=== PATIENT | male | born 1975 | race Caucasian/White ===

== ENCOUNTER 2020-07-04 09:46 | Emergency (ER) | payer SELFPAY ==
[~2020-07-04] VITALS: Ht 177.8 cm; Wt 88.2 kg
[2020-07-04 09:52] VITALS: BP 146/93
[2020-07-04] MEDS ORDERED: KETOROLAC 30 MG/1 ML ONE (10:19)
[2020-07-04] MEDS ORDERED: KETOROLAC 30 MG/1 ML IM ONE (10:30)
--- NOTE | 2020-07-04 12:02 | NUR ---
PT REPORTS PAIN IS BETTER AFTER TORADOL. CHART UP FOR MD RECHECK.
== END 2020-07-04 12:21 | disposition home or self-care (01) ==
LOC: ED 11:06
DX: M16.12 Unilateral primary osteoarthritis, left hip (principal); F17.210 Nicotine dependence, cigarettes, uncomplicated
CPT/HCPCS: 73502; 96372; 99283; J1885

== ENCOUNTER 2020-08-14 18:54 | Inpatient (IN) | payer OTHER ==
[~2020-08-14] VITALS: Ht 172.7 cm; Wt 87.3 kg
[2020-08-14] MEDS ORDERED: ALBUTEROL/IPRATROPIUM 2.5MG/0.5MG, 3 ML NPPB ONE (19:30)
[2020-08-14] MEDS ORDERED: methylPREDNISolone SOD SUCC 125 MG/2 ML IVPush ONE (19:30)
[2020-08-14] MEDS ORDERED: ALBUTEROL/IPRATROPIUM 2.5MG/0.5MG, 3 ML ONE (19:30)
[2020-08-14 20:03] LABS: ALANINE AMINOTRANSFERASE 271 U/L (12-78); ALBUMIN 3.6 g/dL (3.4-5.0); ANION GAP 10 mmol/L (5-15); CALCIUM 8.5 mg/dL (8.5-10.1); CHLORIDE 105 mmol/L (98-107); CREATININE 1.03 mg/dL (0.7-1.3)
[2020-08-14 20:07] LABS: ALKALINE PHOSPHATASE 118 U/L (45-117); BILIRUBIN,TOTAL 0.7 mg/dL (0.2-1.0); TOTAL PROTEIN 8.1 g/dL (6.4-8.2); TROPONIN I 0.045 ng/mL (0.000-0.045)
[2020-08-14 20:19] LABS: BASOPHILS % (AUTO) 1 % (0-1); EOSINOPHILS % (AUTO) 1 % (1-7); LYMPHOCYTES % (AUTO) 37 % (22-44); MEAN CORPUSCULAR HEMOGLOBIN 33.2 pg (27.5-34.5); MEAN CORPUSCULAR HGB CONC 34.7 g/dL (33.2-36.2); MEAN PLATELET VOLUME 7.8 fL (7.4-10.4); MONOCYTES % (AUTO) 4 % (2-9); NEUTROPHILS % (AUTO) 57 % (42-75); PLATELET COUNT 287 x10^3/uL (130-400); RED BLOOD COUNT 5.57 x10^6/uL (4.38-5.82)
[2020-08-14 20:25] LABS: MD NO
[2020-08-14 22:22] LABS: TROPONIN I 0.047 ng/mL (0.000-0.045)
[2020-08-14] MEDS ORDERED: SODIUM CHLORIDE 0.9% 1,000ML IVBOLUS ONE (23:00)
[2020-08-15 01:32] LABS: TROPONIN I 0.052 ng/mL (0.000-0.045)
[2020-08-15] MEDS ORDERED: ASPIRIN 325 MG TABLET ONE (01:51)
[2020-08-15] MEDS ORDERED: ASPIRIN 325 MG TABLET PO ONE (02:00)
--- NOTE | 2020-08-15 02:00 | NUR ---
REPORT GIVEN TO IVETH WHATLEY TO ASSUME CARE UPON TRANSFER TO [facility]
[2020-08-15 02:42] VITALS: BP 179/117
[2020-08-15] MEDS ORDERED: LABETALOL 5MG/ML, 20ML IVPush ONE (03:15)
[2020-08-15] MEDS ORDERED: PROMETHAZINE 25 MG/ML, 1ML IM PRN (06:00)
[2020-08-15] MEDS ORDERED: THIAMINE 200 MG in SODIUM CHLORIDE 0.9% 50 ML IV ONE (06:00)
[2020-08-15] MEDS ORDERED: morphine SULFATE 10 MG/ML, 1ML IVPush PRN (06:00)
[2020-08-15 07:01] LABS: CHOLESTEROL, TOTAL 172 mg/dL (140-239); TRIGLYCERIDES 644 mg/dL (50-200)
[2020-08-15 07:04] LABS: CHOL/HDL RATIO 4.6; HDL CHOL % 22 % (26-37); HDL CHOLESTEROL (DIRECT) 37 mg/dL (40-60); TROPONIN I 0.043 ng/mL (0.000-0.045)
[2020-08-15 07:10] VITALS: BP 154/110
[2020-08-15] MEDS: PANTOPRAZOLE 40 MG IV IVPush SCH (08:20)
[2020-08-15] MEDS ORDERED: REGADENOSON 0.4 MG/5 ML SYRINGE ONE (08:46)
[2020-08-15] MEDS ORDERED: LORazepam 0.5MG TABLET PO PRN (09:00)
[2020-08-15] MEDS ORDERED: LORazepam 1MG TABLET PO PRN ×4 (09:00)
[2020-08-15] MEDS ORDERED: LORazepam 2 MG/ML, 1ML IV PRN ×5 (09:00)
[2020-08-15] MEDS: FOLIC ACID 1 MG TABLET PO SCH (10:59)
[2020-08-15] MEDS: EZETIMIBE 10 MG TABLET PO SCH (10:59)
[2020-08-15] MEDS: THIAMINE 100MG TABLET PO SCH (10:59)
[2020-08-15] MEDS: MULTIVITAMIN 1 TABLET PO SCH (10:59)
[2020-08-15] MEDS ORDERED: ONDANSETRON 2MG/ML, 2ML IVPush PRN (12:30)
[2020-08-15] MEDS ORDERED: ONDANSETRON 4 MG TABLET PO PRN (12:30)
[2020-08-15 15:30] VITALS: BP 160/97
[2020-08-15] MEDS ORDERED: ALBUTEROL HFA 90 MCG/SPRAY INH PRN (15:30)
[2020-08-15] MEDS ORDERED: AMLODIPINE 5 MG TABLET ONE (15:57)
[2020-08-15] MEDS ORDERED: AMLODIPINE 5 MG TABLET PO SCH (16:00)
[2020-08-15 19:25] VITALS: BP 151/110
[2020-08-15 22:03] VITALS: BP 145/100
[2020-08-15 23:38] LABS: CLOSTRIDIUM DIFFICILE ANTIGEN POSITIVE; CLOSTRIDIUM DIFFICILE TOXIN NEGATIVE (Negative)
[2020-08-16] VITALS (8 sets, daily range): BP systolic 138–161; BP diastolic 94–121
[2020-08-16 04:45] LABS: BASOPHILS % (AUTO) 0 % (0-1); EOSINOPHILS % (AUTO) 0 % (1-7); LYMPHOCYTES % (AUTO) 22 % (22-44); MEAN CORPUSCULAR HEMOGLOBIN 33.5 pg (27.5-34.5); MEAN CORPUSCULAR HGB CONC 34.3 g/dL (33.2-36.2); MEAN PLATELET VOLUME 8.1 fL (7.4-10.4); MONOCYTES % (AUTO) 7 % (2-9); NEUTROPHILS % (AUTO) 71 % (42-75); PLATELET COUNT 206 x10^3/uL (130-400); RED BLOOD COUNT 5.28 x10^6/uL (4.38-5.82); RED CELL DISTRIBUTION WIDTH 13.1 % (9.4-14.8)
[2020-08-16 04:51] LABS: MD NO
[2020-08-16 04:52] LABS: ALBUMIN 3.3 g/dL (3.4-5.0); ANION GAP 8 mmol/L (5-15); CALCIUM 8.8 mg/dL (8.5-10.1); CHLORIDE 101 mmol/L (98-107)
[2020-08-16 04:56] LABS: ALANINE AMINOTRANSFERASE 189 U/L (12-78); ALKALINE PHOSPHATASE 105 U/L (45-117); BILIRUBIN,TOTAL 2.1 mg/dL (0.2-1.0); TOTAL PROTEIN 7.5 g/dL (6.4-8.2)
[2020-08-16] MEDS: PANTOPRAZOLE 40 MG IV IVPush SCH (07:55)
[2020-08-16] MEDS: FOLIC ACID 1 MG TABLET PO SCH (08:00)
[2020-08-16] MEDS: MULTIVITAMIN 1 TABLET PO SCH (08:00)
[2020-08-16] MEDS: THIAMINE 100MG TABLET PO SCH (08:00)
[2020-08-16] MEDS: EZETIMIBE 10 MG TABLET PO SCH (08:00)
[2020-08-16] MEDS ORDERED: AMLODIPINE 5 MG TABLET PO SCH ×2 (09:00)
[2020-08-16] MEDS ORDERED: EZET10TA48 PO (11:36)
[2020-08-16] MEDS ORDERED: AMLO-150 PO (11:36)
[2020-08-16] MEDS ORDERED: ALBU18HF INH (11:36)
[2020-08-16] MEDS: LABETALOL 5MG/ML, 20ML IVPush PRN ×2 (12:35→14:52)
[2020-08-16] MEDS ORDERED: VANC1VIA3 PEG (15:18)
[2020-08-16] MEDS ORDERED: VANCOMYCIN 50 MG/ML ORAL SUSP PO SCH (16:00)
== END 2020-08-16 18:04 | disposition home or self-care (01) | DRG 281 ==
LOC: ED 21:31 → EDIP 08-15 01:52 → 5SO 08-15 02:28 → 3N 08-16 05:56
PROVIDERS: ADMIT Family Medicine; ATTEND Family Medicine
DX: I21.A1 Myocardial infarction type 2 (principal); J44.1 Chronic obstructive pulmonary disease with (acute) exacerbation; K70.9 Alcoholic liver disease, unspecified; K75.9 Inflammatory liver disease, unspecified; F10.20 Alcohol dependence, uncomplicated; F17.200 Nicotine dependence, unspecified, uncomplicated; F12.10 Cannabis abuse, uncomplicated; I10 Essential (primary) hypertension; D75.1 Secondary polycythemia; K52.29 Other allergic and dietetic gastroenteritis and colitis; E78.1 Pure hyperglyceridemia; Z85.118 Personal history of other malignant neoplasm of bronchus and lung; Z90.49 Acquired absence of other specified parts of digestive tract
CPT/HCPCS: 36415; J3370; 71045; 71250; 74176; 78452; 80053; 80061; 80074; 84484; 85025; 85379; 87324; 87493; 93005; 93017; 93306; 94640; G0378; J2550; J2785; J3411; A9502; C9113; J7030; J7512

== ENCOUNTER 2021-03-03 17:47 | Inpatient (IN) | payer MEDICAID ==
[~2021-03-03] VITALS: Ht 177.8 cm; Wt 87.7 kg
[~2021-03-03 17:47] MED LIST: ALBU18HF INH; AMLO-150 PO; EZET10TA48 PO; VANC1VIA3 PEG
--- NOTE | 2021-03-03 18:13 | NUR ---
PT REPORTS HE TRIED TO COMMIT SI X4 TIMES IN THE LAST WEEK. TODAY, HE REPORTS HE TOOK 30 PILLS DOXEPIN. PT ALSO SMELLS OF ETOH. BELONGINGS PLACED AND STICKERED IN BAG. PLACED IN LOCKER. BAL 0.337 ATTACHED TO ALL MONITORS. VSS. NADN. EKG DONE. SITTER AT BEDSIDE.
[2021-03-03 18:28] LABS: BASOPHILS % (AUTO) 1 % (0-1); EOSINOPHILS % (AUTO) 5 % (1-7); LYMPHOCYTES % (AUTO) 39 % (22-44); MEAN CORPUSCULAR HEMOGLOBIN 34.9 pg (27.5-34.5); MEAN CORPUSCULAR HGB CONC 35.4 g/dL (33.2-36.2); MEAN PLATELET VOLUME 7.9 fL (7.4-10.4); MONOCYTES % (AUTO) 8 % (2-9); NEUTROPHILS % (AUTO) 48 % (42-75); PLATELET COUNT 258 x10^3/uL (130-400); RED BLOOD COUNT 5.53 x10^6/uL (4.38-5.82); RED CELL DISTRIBUTION WIDTH 13.8 % (9.4-14.8)
[2021-03-03 18:39] LABS: ALBUMIN 3.7 g/dL (3.4-5.0); ANION GAP 11 mmol/L (5-15); CALCIUM 8.4 mg/dL (8.5-10.1); CHLORIDE 108 mmol/L (98-107); CREATININE 0.89 mg/dL (0.7-1.3)
[2021-03-03 18:40] LABS: SALICYLATE LEVEL < 1.7 mg/dL (2.8-20.0)
[2021-03-03 18:42] LABS: MD NO
--- NOTE | 2021-03-03 18:50 | NUR ---
received report from CHACORTA Jerez. patient sleeping, respiration unlabored.
[2021-03-03] MEDS ORDERED: POTASSIUM CHLORIDE 20 MEQ TAB.ER.PRT PO ONE (19:00)
--- NOTE | 2021-03-03 19:33 | NUR ---
Sister: Radha Kovacs : [phone]
--- NOTE | 2021-03-03 21:57 | NUR ---
spoke to poison control, at this time supportive measures only.
--- NOTE | 2021-03-03 22:26 | NUR ---
bottle label inspector at bedside for another tylenol level.
--- NOTE | 2021-03-04 01:14 | NUR ---
no changes. patient sleeping. sitter at the door.
--- NOTE | 2021-03-04 03:45 | NUR ---
Breathalyzer 0.106
[2021-03-04] MEDS ORDERED: LORazepam 2 MG/ML, 1ML IVPush ONE (05:00)
[2021-03-04] MEDS ORDERED: SODIUM CHLORIDE 0.9% 1,000ML IVBOLUS ONE (05:00)
[2021-03-04] MEDS ORDERED: POTASSIUM CHLORIDE 20 MEQ TAB.ER.PRT ONE (05:02)
[2021-03-04] MEDS ORDERED: LORazepam 2 MG/ML, 1ML ONE ×3 (05:03→06:57)
--- NOTE | 2021-03-04 05:20 | NUR ---
patient re-evaluated by ERP. patient having slight tremors. IV started. IVF gab. medicated.
--- NOTE | 2021-03-04 05:27 | NUR ---
patient consumed 2 small bottled water. no vomiting noted.
[2021-03-04] MEDS: LORazepam 2 MG/ML, 1ML IVPush PRN ×3 (06:17→07:20)
--- NOTE | 2021-03-04 06:17 | NUR ---
patient tachycardic. MD aware. tremors noted. medicated.
[2021-03-04] MEDS ORDERED: SODIUM CHLORIDE FLUSH 10ML SYR IVF PRN (06:30)
--- NOTE | 2021-03-04 06:31 | NUR ---
Correction: patient's girlfriend name: Susi.
--- NOTE | 2021-03-04 06:37 | NUR ---
admission orders made. awaiting bed assignment.
--- NOTE | 2021-03-04 06:53 | NUR ---
report to CHACORTA Bal
--- NOTE | 2021-03-04 06:54 | NUR ---
Report from Paul WHATLEY
--- NOTE | 2021-03-04 07:08 | NUR ---
PT resting in bed with eyes closed and moving around, arousable by name, able to state name and situation. HR in the 120-130s, all other VSS. Pt connected to all monitors, 3L NC at 99%, side rails up x2, sitter in matos, WCTM, NADN.
--- NOTE | 2021-03-04 07:32 | NUR ---
Pt arousable by name but unable to answer questions for med rec or suicide reassessment. Pt would look at this RN and state that he is in the hospital but lost intrest and would not cooperate to complete all assessments.
--- NOTE | 2021-03-04 07:37 | NUR ---
Report to Alison WHATLEY
[2021-03-04] MEDS ORDERED: GABAPENTIN 300 MG CAPSULE PO PRN (11:30)
[2021-03-04] MEDS ORDERED: LABETALOL 5MG/ML, 20ML IVPush PRN (11:30)
[2021-03-04] MEDS ORDERED: DOCUSATE 100 MG CAPSULE PO PRN (11:30)
[2021-03-04] MEDS ORDERED: METOCLOPRAMIDE 5 MG/ML, 2ML IVPush PRN (11:30)
[2021-03-04] MEDS ORDERED: ACETAMINOPHEN 325 MG TABLET PO PRN (11:30)
[2021-03-04] MEDS ORDERED: LORazepam 2 MG/ML, 1ML IV PRN ×5 (11:30)
[2021-03-04] MEDS ORDERED: BISACODYL 10 MG SUPP PR PRN (11:30)
[2021-03-04] MEDS ORDERED: POLYETHYLENE GLYCOL 17 GM PACKET PO PRN (11:30)
[2021-03-04] MEDS: POTASSIUM CHLORIDE 20 MEQ, MAGNESIUM SULFATE 2 GM, THIAMINE 200 MG, MVI ADULT 10 ML, FO... IV SCH (11:57)
[2021-03-04] MEDS: LACTATED RINGERS 1,000 ML IV SCH (11:58)
[2021-03-04] MEDS: HEPARIN 5,000 UNITS/ML, 1ML SQ SCH ×2 (12:48→20:28)
[2021-03-04] MEDS: PANTOPRAZOLE 40 MG IV IVPush SCH (12:48)
[2021-03-04 14:50] LABS: MICROSCOPIC NOT IND
[2021-03-04 15:01] LABS: AMPHETAMINE SCREEN, URINE Negative (Negative); BARBITURATE SCREEN, URINE Negative (Negative); BENZODIAZEPINE SCREEN, URINE Negative (Negative); CANNABINOID SCREEN, URINE Negative (Negative); COCAINE SCREEN, URINE Negative (Negative); METHADONE SCREEN, URINE Negative (Negative); OPIATE SCREEN, URINE Negative (Negative)
[2021-03-04 15:46] VITALS: BP 110/70
[2021-03-04 15:53] VITALS: BP 110/70
[2021-03-04] MEDS: MAGNESIUM CHLORIDE 64 MG TABLET.DR PO SCH ×2 (17:21→20:28)
[2021-03-04 19:37] VITALS: BP 114/72
[2021-03-05] MEDS: LACTATED RINGERS 1,000 ML IV SCH ×2 (00:28→14:30)
[2021-03-05 02:20] VITALS: BP 106/69
[2021-03-05] MEDS: HEPARIN 5,000 UNITS/ML, 1ML SQ SCH ×3 (04:48→21:53)
[2021-03-05 05:03] LABS: BASOPHILS % (AUTO) 0 % (0-1); EOSINOPHILS % (AUTO) 5 % (1-7); LYMPHOCYTES % (AUTO) 20 % (22-44); MEAN CORPUSCULAR HEMOGLOBIN 35.1 pg (27.5-34.5); MEAN CORPUSCULAR HGB CONC 35.6 g/dL (33.2-36.2); MEAN PLATELET VOLUME 8.1 fL (7.4-10.4); MONOCYTES % (AUTO) 10 % (2-9); NEUTROPHILS % (AUTO) 66 % (42-75); PLATELET COUNT 202 x10^3/uL (130-400); RED BLOOD COUNT 4.51 x10^6/uL (4.38-5.82); RED CELL DISTRIBUTION WIDTH 13.7 % (9.4-14.8)
[2021-03-05 05:17] LABS: INTERNATIONAL NORMALIZED RATIO 1.09 (0.93-1.1); PROTHROMBIN TIME 11.6 Seconds (9.6-11.5)
[2021-03-05 05:18] LABS: MD NO
[2021-03-05 05:19] LABS: ALBUMIN 2.8 g/dL (3.4-5.0); ANION GAP 7 mmol/L (5-15); CALCIUM 8.1 mg/dL (8.5-10.1); CHLORIDE 105 mmol/L (98-107)
[2021-03-05 05:28] LABS: ALANINE AMINOTRANSFERASE 103 U/L (12-78); ALKALINE PHOSPHATASE 79 U/L (45-117); BILIRUBIN,TOTAL 0.7 mg/dL (0.2-1.0); CHOL/HDL RATIO 2.1; CHOLESTEROL, TOTAL 134 mg/dL (140-239); CREATININE 0.65 mg/dL (0.7-1.3); HDL CHOL % 47 % (26-37); HDL CHOLESTEROL (DIRECT) 63 mg/dL (40-60); LDL CHOLESTEROL,CALCULATED 45 mg/dL (54-169); LDL/HDL RATIO 0.7 (0.5-3.0); TOTAL PROTEIN 6.3 g/dL (6.4-8.2); TRIGLYCERIDES 132 mg/dL (50-200); VLDL CHOLESTEROL 26 mg/dL (0-25)
[2021-03-05] MEDS: PANTOPRAZOLE 40 MG IV IVPush SCH (07:52)
[2021-03-05] MEDS: MAGNESIUM CHLORIDE 64 MG TABLET.DR PO SCH ×3 (07:52→21:52)
[2021-03-05 08:17] VITALS: BP 123/77
[2021-03-05] MEDS ORDERED: POTASSIUM PHOSPHATE 44 MEQ in SODIUM CHLORIDE 0.9% 500 ML IV ONE (10:00)
[2021-03-05] MEDS: POTASSIUM CHLORIDE 20 MEQ, MAGNESIUM SULFATE 2 GM, THIAMINE 200 MG, MVI ADULT 10 ML, FO... IV SCH (12:53)
[2021-03-05 14:11] VITALS: BP 106/69
[2021-03-05 19:10] VITALS: BP 133/82
[2021-03-05] MEDS ORDERED: TEMAZEPAM 15 MG CAPSULE PO PRN (22:00)
[2021-03-06 02:34] VITALS: BP 117/76
[2021-03-06] MEDS: LACTATED RINGERS 1,000 ML IV SCH (03:24)
[2021-03-06 05:24] LABS: BASOPHILS % (AUTO) 1 % (0-1); EOSINOPHILS % (AUTO) 7 % (1-7); LYMPHOCYTES % (AUTO) 24 % (22-44); MEAN CORPUSCULAR HEMOGLOBIN 34.9 pg (27.5-34.5); MEAN CORPUSCULAR HGB CONC 35.3 g/dL (33.2-36.2); MEAN PLATELET VOLUME 8.4 fL (7.4-10.4); MONOCYTES % (AUTO) 11 % (2-9); NEUTROPHILS % (AUTO) 58 % (42-75); PLATELET COUNT 204 x10^3/uL (130-400); RED BLOOD COUNT 4.68 x10^6/uL (4.38-5.82); RED CELL DISTRIBUTION WIDTH 13.6 % (9.4-14.8)
[2021-03-06 05:25] LABS: MD NO
[2021-03-06 05:39] LABS: ALBUMIN 2.7 g/dL (3.4-5.0); ANION GAP 6 mmol/L (5-15); CALCIUM 8.3 mg/dL (8.5-10.1); CHLORIDE 106 mmol/L (98-107)
[2021-03-06 05:44] LABS: ALANINE AMINOTRANSFERASE 86 U/L (12-78); ALKALINE PHOSPHATASE 84 U/L (45-117); BILIRUBIN,TOTAL 0.5 mg/dL (0.2-1.0); CREATININE 0.65 mg/dL (0.7-1.3); TOTAL PROTEIN 6.3 g/dL (6.4-8.2)
[2021-03-06] MEDS: HEPARIN 5,000 UNITS/ML, 1ML SQ SCH (05:53)
[2021-03-06] MEDS ORDERED: PANTOPRAZOLE 40MG TABLET PO SCH (06:00)
[2021-03-06 07:05] VITALS: BP 120/81
[2021-03-06] MEDS ORDERED: SERTRALINE 50MG TABLET PO SCH (09:00)
[2021-03-06] MEDS: MAGNESIUM CHLORIDE 64 MG TABLET.DR PO SCH (09:12)
[2021-03-06] MEDS ORDERED: AMLO-150 PO (11:57)
[2021-03-06] MEDS ORDERED: MULT-257 PO (11:57)
[2021-03-06] MEDS ORDERED: TEMA15CA6 PO (11:57)
[2021-03-06] MEDS ORDERED: ACET325T26 PO (11:57)
[2021-03-06] MEDS ORDERED: SERT50TA28 PO (11:57)
[2021-03-06] MEDS ORDERED: THIA100T67 PO (11:57)
[2021-03-06] MEDS ORDERED: PANT40TA6 PO (11:57)
[2021-03-06] MEDS ORDERED: FOLI1TAB32 PO (11:57)
[2021-03-06 12:50] VITALS: BP 137/93
== END 2021-03-06 14:58 | DRG 918 ==
LOC: ED 18:35 → EDIP 18:54 → OBSVTOIN 18:54 → 4WST 03-04 07:52 → 4NW 03-04 07:55 → 4WST 03-04 07:55
PROVIDERS: ADMIT Emergency Medicine; ATTEND Internal Medicine
DX: T43.012A Poisoning by tricyclic antidepressants, intentional self-harm, initial encounter (principal); F33.2 Major depressive disorder, recurrent severe without psychotic features; F10.231 Alcohol dependence with withdrawal delirium; I10 Essential (primary) hypertension; F41.9 Anxiety disorder, unspecified; Z20.822 Contact with and (suspected) exposure to COVID-19; E78.5 Hyperlipidemia, unspecified; F12.90 Cannabis use, unspecified, uncomplicated; J44.9 Chronic obstructive pulmonary disease, unspecified; F10.229 Alcohol dependence with intoxication, unspecified; F17.210 Nicotine dependence, cigarettes, uncomplicated; Z86.19 Personal history of other infectious and parasitic diseases; Z90.49 Acquired absence of other specified parts of digestive tract; Z91.14 Patient's other noncompliance with medication regimen; Z91.5 Personal history of self-harm; Z85.118 Personal history of other malignant neoplasm of bronchus and lung; Z91.041 Radiographic dye allergy status; Y92.89 Other specified places as the place of occurrence of the external cause
CPT/HCPCS: 36415; 99285; J7042; 80048; 80053; 80061; 80299; 80307; 80320; 80329; 81003; 82040; 82140; 83735; 84100; 84443; 85025; 85610; 87635; 93005; G0378; J1644; J3411; J3475; J3480; C9113; G0480; J2060; J7030; J7040; J7120

== ENCOUNTER 2021-03-06 12:04 | Inpatient (IN) | payer MEDICAID ==
[~2021-03-06] VITALS: Ht 177.8 cm; Wt 80.4 kg
[~2021-03-06 12:04] MED LIST changes: +ACET325T26 PO; +FOLI1TAB32 PO; +MULT-257 PO; +PANT40TA6 PO; +SERT50TA28 PO; +TEMA15CA6 PO; +THIA100T67 PO
[2021-03-06] MEDS ORDERED: POLYETHYLENE GLYCOL 17 GM PACKET PO PRN (12:30)
[2021-03-06] MEDS ORDERED: DOCUSATE 100 MG CAPSULE PO PRN (12:30)
[2021-03-06] MEDS ORDERED: ACETAMINOPHEN 325 MG TABLET PO PRN (12:30)
[2021-03-06] MEDS ORDERED: ONDANSETRON ODT 4 MG PO PRN (12:30)
[2021-03-06] MEDS ORDERED: PLEASE ENTER HEIGHT AND WEIGHT MC SCH (15:30)
[2021-03-06 15:50] VITALS: BP 152/90
[2021-03-06] MEDS ORDERED: ALBUTEROL HFA 90 MCG/SPRAY INH PRN (17:00)
[2021-03-06 20:18] VITALS: BP 127/80
[2021-03-07] MEDS: PANTOPRAZOLE 40MG TABLET PO SCH (06:14)
[2021-03-07 06:35] LABS: FREE T4 (FREE THYROXINE) 0.95 ng/dL (0.76-1.46)
[2021-03-07 07:54] VITALS: BP 145/76
[2021-03-07] MEDS ORDERED: ALBUTEROL SULFATE 2.5 MG/3 ML NPPB PRN (08:00)
[2021-03-07] MEDS: FOLIC ACID 1 MG TABLET PO SCH (08:01)
[2021-03-07] MEDS: THIAMINE 100MG TABLET PO SCH (08:02)
[2021-03-07] MEDS: EZETIMIBE 10 MG TABLET PO SCH (08:02)
[2021-03-07] MEDS: AMLODIPINE 2.5 MG TABLET PO SCH (08:02)
[2021-03-07] MEDS: MULTIVITAMIN 1 TABLET PO SCH (08:02)
[2021-03-07] MEDS ORDERED: SERTRALINE 50MG TABLET PO SCH (09:00)
[2021-03-07] MEDS ORDERED: NEOSPORIN OINT. PKT 1 PACKET TP ONE (14:00)
[2021-03-07 20:09] VITALS: BP 143/79
[2021-03-07] MEDS: ACAMPROSATE 333 MG TABLET.DR PO SCH (20:32)
[2021-03-08] MEDS: PANTOPRAZOLE 40MG TABLET PO SCH (06:07)
[2021-03-08 07:46] VITALS: BP 157/96
[2021-03-08] MEDS ORDERED: SERTRALINE 50MG TABLET PO SCH (09:00)
[2021-03-08] MEDS: FOLIC ACID 1 MG TABLET PO SCH (09:21)
[2021-03-08] MEDS: AMLODIPINE 2.5 MG TABLET PO SCH (09:21)
[2021-03-08] MEDS: ACAMPROSATE 333 MG TABLET.DR PO SCH (09:21)
[2021-03-08] MEDS: THIAMINE 100MG TABLET PO SCH (09:21)
[2021-03-08] MEDS: EZETIMIBE 10 MG TABLET PO SCH (09:22)
[2021-03-08] MEDS: MULTIVITAMIN 1 TABLET PO SCH (09:22)
[2021-03-08] MEDS ORDERED: SERT50TA28 PO (10:28)
[2021-03-08] MEDS ORDERED: MULT-257 PO (10:28)
[2021-03-08] MEDS ORDERED: EZET10TA48 PO (10:28)
[2021-03-08] MEDS ORDERED: AMLO-150 PO (10:28)
[2021-03-08] MEDS ORDERED: ACAM333T7 PO (10:28)
[2021-03-08] MEDS ORDERED: PANT40TA6 PO (10:28)
== END 2021-03-08 13:31 | disposition home or self-care (01) | DRG 885 ==
LOC: 3E 15:09
PROVIDERS: ADMIT Psychiatry & Neurology Psychosomatic Medicine; ATTEND Psychiatry & Neurology Psychosomatic Medicine
DX: F33.2 Major depressive disorder, recurrent severe without psychotic features (principal); E78.1 Pure hyperglyceridemia; E78.5 Hyperlipidemia, unspecified; F12.10 Cannabis abuse, uncomplicated; F17.210 Nicotine dependence, cigarettes, uncomplicated; G47.00 Insomnia, unspecified; I10 Essential (primary) hypertension; K21.9 Gastro-esophageal reflux disease without esophagitis; F10.20 Alcohol dependence, uncomplicated; Y90.9 Presence of alcohol in blood, level not specified; K76.0 Fatty (change of) liver, not elsewhere classified; M19.90 Unspecified osteoarthritis, unspecified site; Z79.899 Other long term (current) drug therapy; Z85.118 Personal history of other malignant neoplasm of bronchus and lung; Z86.19 Personal history of other infectious and parasitic diseases; Z90.49 Acquired absence of other specified parts of digestive tract; Z91.5 Personal history of self-harm
CPT/HCPCS: 36415; 71045; 84439; 84443

== ENCOUNTER 2021-05-06 05:11 | Emergency (ER) | payer MEDICAID ==
[~2021-05-06] VITALS: Ht 177.8 cm; Wt 82.7 kg
[~2021-05-06 05:11] MED LIST changes: +ACAM333T7 PO; -VANC1VIA3 PEG; +VANC1VIA36 PEG
[2021-05-06] MEDS ORDERED: KETOROLAC 60 MG/2 ML IM ONE (06:00)
[2021-05-06] MEDS ORDERED: METHOCARBAMOL 750 MG TABLET PO ONE (06:00)
[2021-05-06] MEDS ORDERED: KETOROLAC 60 MG/2 ML ONE (06:04)
[2021-05-06] MEDS ORDERED: METHOCARBAMOL 750 MG TABLET ONE (06:04)
[2021-05-06 06:09] VITALS: BP 137/89
--- NOTE | 2021-05-06 06:52 | NUR ---
Patient given discharge instructions and rx, they have confirmed that they understand the instructions. Patient ambulatory with steady gait.
== END 2021-05-06 06:53 | disposition home or self-care (01) ==
LOC: ED 06:35
DX: S29.011A Strain of muscle and tendon of front wall of thorax, initial encounter (principal); F17.200 Nicotine dependence, unspecified, uncomplicated; X58.XXXA Exposure to other specified factors, initial encounter; Y93.89 Activity, other specified; Y92.89 Other specified places as the place of occurrence of the external cause; Y99.8 Other external cause status
CPT/HCPCS: 71046; 96372; 99283; J1885

== ENCOUNTER 2021-05-19 05:14 | Emergency (ER) | payer MEDICAID ==
[~2021-05-19] VITALS: Ht 177.8 cm; Wt 80.6 kg
[2021-05-19 05:21] VITALS: BP 155/99
--- NOTE | 2021-05-19 05:37 | NUR ---
pt presents to the ed with right shoulder pain, pt states it is an old injury and that the pain is so bad he cannot sleep. 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 pt resting on [employer].
[2021-05-19] MEDS ORDERED: HYDROcodone/APAP 5/325 TABLET ONE (05:50)
--- NOTE | 2021-05-19 05:53 | NUR ---
pt given pain medication, pt resting on gurney, denies needs at this time.
[2021-05-19] MEDS ORDERED: HYDROcodone/APAP 5/325 TABLET PO ONE (06:00)
--- NOTE | 2021-05-19 06:05 | NUR ---
Patient given discharge instructions and they have confirmed that they understand the instructions. Patient ambulatory with steady gait.
== END 2021-05-19 06:07 | disposition home or self-care (01) ==
LOC: ED 05:20
DX: G89.29 Other chronic pain (principal); M25.511 Pain in right shoulder
CPT/HCPCS: 99283